=== PATIENT | female | born 1995 | race Caucasian/White ===

== ENCOUNTER 2019-12-31 20:46 | Inpatient (IN) | payer OTHER ==
[~2019-12-31] VITALS: Ht 175.3 cm; Wt 62.6 kg
[2019-12-31 20:47] VITALS: BP 128/83
[2019-12-31 21:27] LABS: ABSOLUTE NEUTROPHILS 2.3 thou/uL (1.4-8.2); BASOPHILS 0.3 % (0.0-2.0); HEMOGLOBIN 14.6 gm/dL (12.0-15.0)
[2019-12-31 21:29] LABS: HEMATOCRIT 41.7 % (37.0-47.0); LYMPHOCYTES 15.2 % (24.0-44.0); MCH 34.4 pg (26.0-34.0); MCHC 34.9 g/dL (28.0-37.0); MCV 98.6 fL (80.0-100.0); MONOCYTES 8.8 % (1.0-8.0); POLYS 75.7 % (36.0-66.0); RBC 4.23 mil/uL (4.20-5.00); RDW 15.9 % (10.5-14.5)
[2019-12-31 21:44] LABS: ALBUMIN 4.2 g/dL (3.4-5.0); ANION GAP 20 mmol/L (7-16); BUN 10 mg/dL (7-18); CALCIUM 9.1 mg/dL (8.5-10.1); CO2 22 mmol/L (21-32); CREATININE 0.8 mg/dL (0.6-1.0); GLUCOSE 92 mg/dL (74-106); LIPASE 375 U/L (73-393); SGOT 353 U/L (15-37); SGPT 133 U/L (30-65); SODIUM 133 mmol/L (136-145); TOTAL BILIRUBIN 2.4 mg/dL (<0.1-1.0); TOTAL PROTEIN 8.4 g/dL (6.4-8.2); TROPONIN-I <0.06 ng/mL (<0.06)
[2019-12-31 21:45] LABS: POTASSIUM 2.4 mmol/L (3.5-5.1)
[2019-12-31 21:46] LABS: CHLORIDE 91 mmol/L (98-107)
[2019-12-31 22:05] LABS: MACROCYTES SLIGHT; PLATELET ESTIMATE MARKEDLY DECREASED
[2019-12-31 22:09] LABS: PLATELET COUNT 24 thou/uL (150-400)
[2019-12-31 23:53] VITALS: BP 125/59
[2020-01-01] VITALS (33 sets, daily range): BP systolic 94–123; BP diastolic 46–79
--- NOTE | 2020-01-01 00:24 | NUR ---
ADMITTED 2350 to ICU room 247 for ETOH withdrawl (CIWA in ED =24), r/o Covid-19 (fever, no cough or SOA), nausea and vomitting x 3-4 days, difficulty urinating, and SVT (rhythm pt was in when EMS arrived at her home). Pt weak, oriented x3-4, monitor currently sinus tachycardia with rates 104-120; pt O2 sat 95% on room air. Primary nurse currently putting rodriguez cath as pt states she has been unable to void for several hours. Pt also states she has not had a BM in over a week.
[2020-01-01 01:43] LABS: URINE BILIRUBIN 2+ (Negative); URINE BLOOD 2+ (Negative); URINE CLARITY CLEAR; URINE COLOR YELLOW; URINE GLUCOSE-RANDOM* NEGATIVE (Negative); URINE KETONES TRACE (Negative); URINE LEUKOCYTES-REFLEX NEGATIVE (Negative); URINE NITRITE-REFLEX NEGATIVE (Negative); URINE PROTEIN (DIPSTICK) 2+ (Negative); URINE SPECIFIC GRAVITY >= 1.030 (1.005-1.035)
[2020-01-01 01:45] LABS: ICTOTEST (BILI CONFIRMATORY) Positive (Negative)
[2020-01-01 01:53] LABS: BACTERIA-REFLEX None Seen /HPF (None Seen); CRYSTALS None Seen /LPF (None Seen); HYALINE CASTS 0-3 Few /LPF (None Seen); MUCUS 4-6 Moderate strn/LPF (None Seen); SQUAMOUS 0-3 Few /LPF (0-3); URINE RBC 3-10 Few /HPF (0-2); URINE WBC-REFLEX None Seen /HPF (0-5)
--- NOTE | 2020-01-01 02:00 | NUR ---
PT RESTING QUIETLY. CALM AND COOPERATIVE. DENIES DISCOMFORT.
[2020-01-01 04:07] LABS: MAGNESIUM 1.7 mg/dL (1.8-2.4)
[2020-01-01 04:07] LABS: INR 1.2; PROTIME 12.3 Seconds (9.3-11.4)
[2020-01-01 04:08] LABS: POTASSIUM 2.5 mmol/L (3.5-5.1)
--- NOTE | 2020-01-01 06:00 | NUR ---
PT IS DROUSY BUT AROUSES EASILY. ORIENTED X 3 PT STATES TO NOT BE ABLE TO TASTE NOR SMELL. EYES ARE VERY REDDENED. REMAINS IN ISOLATION FOR POSSIBLE COVID 19 POSITIVE. SINUS RHYTHM LUNGS CLEAR O2 SAT 96 % ON ROOM AIR. K AND MG BEING REPLACED AT PRESENT. WILL CONT TO MONITOR.
--- NOTE | 2020-01-01 08:51 | NUR ---
Assumed care at 0700. PT appears alert and oriented in bed. PT declines bath and turn at this time. When asked if PT has any concerns or goals for today she stated, "no, none that I can think of." VSS. See reassessment for further details. PT denies any pain or nausea at this time. Moderate tremors noted with bilateral arms extended. CIWA score of 7 at this time. No PRN medications given. 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 The number for Jerzy Campo is [phone]. PT requested to add Jackson Pate [phone] to her contact list. Jackson Pate is step-dad. High fall risk precautions are in place. Call light is within reach. RN will continue to monitor.
[2020-01-01 09:27] LABS: ALBUMIN 2.8 g/dL (3.4-5.0); CALCIUM 7.6 mg/dL (8.5-10.1); CREATININE 0.5 mg/dL (0.6-1.0); TOTAL BILIRUBIN 2.7 mg/dL (<0.1-1.0)
[2020-01-01 09:29] LABS: POTASSIUM 3.8 mmol/L (3.5-5.1)
--- NOTE | 2020-01-01 11:47 | NUR ---
RN escorted PT to CT for an abdominal scan per GI. PT ambulated from bed to wheelchair with nurse ast. Fall precautions in place. Tremors were noted throughout PT's body during activity. PT reported mild dizziness and worsening headache with movement. PT appeared to tolerate exam and activity fair. PT back in bed denies significant pain just reports "full body aches." VSS. See reassessment for more details. High fall risk precautions in place. Call light is within reach. RN will continue to monitor.
--- NOTE | 2020-01-01 13:48 | NUR ---
chart review. caitie spoke with bedside nurse and transfer call into pt room. caitie visited with mustapha via phone call. intro to caitie, transition of care, outpt resource for alcohol abuse, and safe net packet. she is a & o x 3, pleasant and quiet. able to make her needs know. mustapha reported " sometimes stay with luz marina, other time stay with by jhonny booth, in house with my 2 kids ( 6 and 3 years old). jhonny is taking care of them know. 20 steps in the house. no dme. no longer drive. independent with adl's. no working, i stay at home. no rehab or hh in past. no support for alcohol."/mustapha. education on safe net packet, [facility], [facility], and [facility]. will cont following as needed for dc needs.
[2020-01-01 16:07] LABS: HAV IgM AB (ANTI-HAV IgM) Indeterminate (Negative); HEPATITIS B SURFACE AG Negative (Negative); HEPATITIS C VIRUS AB <0.1 (0.0-0.9)
--- NOTE | 2020-01-01 16:16 | NUR ---
RN paged Dr. Harris through GI answering service at 1600. Dr. Harris returned phone call at 1610. RN notified Dr. Harris of the PT's CT results and asked if the PT could have a diet. Provider verbalized understanding and ordered PT to have a clear liquid diet that may be advanced as tolerated. RN verbalized understanding. Will continue to monitor.
--- NOTE | 2020-01-01 17:56 | NUR ---
PT is progressing towards care plan goals. She has denied any nausea this shift. Urine output is adequate, a total of 850 mls for this shift. CIWA scores have remained at 7. No PRN medications given per protocol. PT's diet has been advanced to clear liquids. PT has tolerated water well however has not attempted jello or broth at this time. PT denies any complaints or concerns. High fall risk precautions are in place. Call light is within reach. RN will continue to monitor.
[2020-01-02] VITALS (13 sets, daily range): BP systolic 99–113; BP diastolic 64–82
[2020-01-02 05:45] LABS: WBC 2.6 thou/uL (4.0-11.0)
[2020-01-02 05:46] LABS: HEMATOCRIT 32.6 % (37.0-47.0); MCH 35.2 pg (26.0-34.0); MCV 100.7 fL (80.0-100.0); RBC 3.24 mil/uL (4.20-5.00); RDW 15.7 % (10.5-14.5)
[2020-01-02 05:56] LABS: HEMOGLOBIN 11.4 gm/dL (12.0-15.0)
[2020-01-02 06:17] LABS: ALBUMIN 2.8 g/dL (3.4-5.0); CALCIUM 7.7 mg/dL (8.5-10.1); CREATININE 0.5 mg/dL (0.6-1.0); POTASSIUM 3.2 mmol/L (3.5-5.1); TOTAL BILIRUBIN 3.1 mg/dL (<0.1-1.0); TOTAL PROTEIN 6.1 g/dL (6.4-8.2)
--- NOTE | 2020-01-02 11:16 | HC ---
[facility] [place] [address] CONSULTATION Name: EDMUNDO HOPPER Room #: 247-P [facility] IN ..#: [id number] Admission: 12/31/19 Attend Phys: Preston Crum MD Discharge: Date of : 89 Report #: [id number] THIS REPORT FOR: cc: [facility] - Clinic physician unknown [facility] - Clinic physician unknown Ryan Trujillo MD ~ CC: [facility] unknown Martin Tong DATE OF SERVICE: 01/01/2020 INFECTIOUS DISEASES CONSULTATION REASON FOR CONSULTATION: I was asked to evaluate concerning alcohol-induced hepatitis and possible COVID-19. HISTORY OF PRESENT ILLNESS: The patient is a 24-year-old admitted on 12/31/2019 with abdominal pain, nausea, vomiting. She is a drinker of whiskey. She has had symptoms for the past 3 days with nausea and vomiting. Abdominal pain has persisted. No diarrhea. She has been shaky, feels like she might be in withdrawal. On admission, she had low-grade fever. She has had no cough or sputum production. She has underlying hepatitis C. She reports not abiding by the rules of social distancing. REVIEW OF SYSTEMS: A 14-point review of system was negative other than what has been described above. ALLERGIES: None known. MEDICATIONS: None prior to her admission, now on ceftriaxone, azithromycin. PAST MEDICAL HISTORY: Alcohol abuse, hepatitis C, pancreatitis, low back injury, tobacco use. FAMILY HISTORY: No report of tuberculosis. SOCIAL HISTORY: Smoke cigarettes, heavy alcohol use, marijuana use. PHYSICAL EXAMINATION: VITAL SIGNS: She is afebrile and hemodynamically stable. Due to COVID-19 and PPE conservation program, the patient was witnessed at her window entry. Discussed with nursing staff. Examination per attending today. There is report of soft abdomen with no hepatosplenomegaly. CHEST: Clear lung del cid. HEART: Regular, without murmur. [facility] [address] [place] [address] CONSULTATION Name: EDMUNDO HOPPER Room #: 247-P [facility] IN [facility]#: [id number] Admission: 12/31/19 Attend Phys: Preston Crum MD Discharge: Date of : 89 Report #: [id number] LABORATORY STUDIES: Reviewed. MICROBIOLOGY: Reviewed. Chest x-ray and CT scan reviewed. IMPRESSION: A 24-year-old with alcoholic hepatitis. This is in the setting of hepatitis C infection, now responding to IV fluid resuscitation. Concern for possible viral gastroenteritis versus peptic ulcer disease. Pancreatic enzymes are normal. Initial lactate was elevated, now back down to normal. Thrombocytopenia, concerning for portal hypertension, although there was no hepatosplenomegaly evident on CT scanning. She does have evidence of hepatic steatosis. Potential exposure to SARS coronavirus 2. RECOMMENDATIONS: We will continue with current antibiotic program, pending culture results. Follow serial laboratory studies including CBC and liver function tests. COVID testing has been sent. We will keep him in isolation, pending studies. <ELECTRONICALLY SIGNED> By: Ryan Trujillo MD 01/02/20 1116 1553 1731 Ryan Trujillo MD /nt
--- NOTE | 2020-01-02 19:41 | NUR ---
ASSUMED CARE AT 0700, ASSESSMENT AND VITAL SIGNS COMPLETED PER ICU PROTOCOL. DR. FREEDMAN ROUNDED THIS AM, NEW ORDERS RECEIVED AND EXECUTED. JOSE CARLOS MOREJON, ROUNDED, NEW ORDERS RECEIVED AND EXECUTED. PT STATUS CHANGED FROM ICU TO M/S TELE, PT PROGRESSING TOWARDS POC.
--- NOTE | 2020-01-03 03:49 | NUR ---
ASSUMED PT CARE AROUND 1900. PT RESTING IN BED WATCHING TELEVISION. PT AOX4 WITH VSS AND NO C/O PAIN, N/V/D, OR SOA. PT DOES HOWEVER HAVE TREMORS AND VISUAL HALLUCINATIONS THRU SHIFT. [facility] PROTOCOL FOLLOWED AND MEDICATED ACCORDINGLY. PT HAD MILD FEVER AT BEGINNING OF SHIFT GIVEN TYLENOL AND TEMP RETURNED STABLE. PT ALBERTO REMOVED PER PROTOCOL. PT RESTED THRU NIGHT WITH MINIMAL INTERRUPTIONS. WILL CONTINUE TO MONITOR FOR ANY CHANGE IN CONDITION.
[2020-01-03 04:00] VITALS: BP 97/70
[2020-01-03 08:06] VITALS: BP 105/75
[2020-01-03 09:38] LABS: MCH 35.1 pg (26.0-34.0); WBC 3.1 thou/uL (4.0-11.0)
[2020-01-03 09:40] LABS: HEMATOCRIT 35.3 % (37.0-47.0); HEMOGLOBIN 12.4 gm/dL (12.0-15.0); MCV 100.3 fL (80.0-100.0); RBC 3.52 mil/uL (4.20-5.00); RDW 16.2 % (10.5-14.5)
--- NOTE | 2020-01-03 13:18 | NUR ---
Pt has transfer orders to med surg unit from ICU today. CILADI better. Pt has been given ethol resources. [employer] referral in progress for pt pay status. Contact numbers for boyfriend and step dad updated. Pt up with supervision. Possible dc home 1-2 days. Will follow along should the pt need scripts vouched at dc.
--- NOTE | 2020-01-03 15:44 | NUR ---
ASSESSMENTS DOCUMENTED. PT HAS MED/SURG TRANSFER ORDERS. SLEEPING MOST OF DAY. ADEQUATE APPETITE AND URINE OUTPUT. PT CONTINUES TO BE CONFUSED ABOUT WHERE WE CURRENTLY ARE. NEEDS STANDBY ASSIST WHEN OOB DUE TO UNSTEADY GAIT. PROGRESSING TOWARDS PLAN OF CARE, EVIDANCE BY DECREASING CIWA SCORES. WILL CONTINUE TO MONITOR.
[2020-01-04 00:01] VITALS: BP 125/83
[2020-01-04 03:52] VITALS: BP 115/76
--- NOTE | 2020-01-04 04:17 | NUR ---
RECIEVED TRANSFER FROM ICU AT 2345. ATIVAN GIVEN PER CWAW SCORE. RESTING QUIETLY WITHOUT PRESENT COMPLAINTS. CWAW 4/NO ATIVAN GIVEN. UP TO BATHROOM WITH STANDBY ASSIST. PROGRESSING SLOWLY TOWARDS DISCHARGE GOALS AND PLAN OF CARE FOR NOC. CONTINUE TO ASSES CLOSELY.
[2020-01-04 05:33] LABS: ALBUMIN 3.2 g/dL (3.4-5.0); CALCIUM 8.9 mg/dL (8.5-10.1); CREATININE 0.5 mg/dL (0.6-1.0); MAGNESIUM 1.4 mg/dL (1.8-2.4); POTASSIUM 3.5 mmol/L (3.5-5.1); TOTAL BILIRUBIN 3.3 mg/dL (<0.1-1.0); TOTAL PROTEIN 7.1 g/dL (6.4-8.2)
[2020-01-04 05:41] LABS: WBC 3.7 thou/uL (4.0-11.0)
[2020-01-04 05:42] LABS: HEMATOCRIT 35.4 % (37.0-47.0); HEMOGLOBIN 12.4 gm/dL (12.0-15.0); MCH 35.6 pg (26.0-34.0); MCV 101.6 fL (80.0-100.0); RBC 3.49 mil/uL (4.20-5.00); RDW 16.5 % (10.5-14.5)
[2020-01-04 07:20] VITALS: BP 110/75
[2020-01-04] MEDS ORDERED: CHLORDIAZEPOXIDE5 M2 PO (09:17)
[2020-01-04] MEDS ORDERED: FOLIC ACID1 MG PO (09:17)
[2020-01-04] MEDS ORDERED: VITAMIN B-1100 M2 PO (09:18)
[2020-01-04 11:32] VITALS: BP 115/69
--- NOTE | 2020-01-04 11:45 | NUR ---
RECEIVED PT'S CARE AROUND 0720; PT. ON BED; ALERT; AWAKE; DURING AM ASSESMENT C/O HEADACHE; PRN PAIN MEDICATION GIVEN WITH AM MEDICATION; PER HOSPITALIST OK FOR PT. TO GO HOME; PRESCRIPTION GIVEN; WILL EDUCATED ABOUT WHERE TO FOLLOW UP & MONITOR LIVER TEST; EDUCATED ABOUT FALL PRECAUTIONS; ST. UNDERSTANDING; WORKING ON D/C ORDERS; TOOK A SHOWER; SA ON THE MONITOR; ASSESSMENT CHARGED; FOLLOWED POC;
[2020-01-04 11:57] VITALS: BP 115/69
--- NOTE | 2020-01-04 12:20 | NUR ---
Pt dcing home today. Recommended for f/u at [facility] right away for estb pcp, labs, and medication assistance as well as mental health noted in the pt's dc instructions. Shakila tx and support resources noted in the pt's dc instructions as well. Jabier will f/u with her about her medicaid application.
--- NOTE | 2020-01-05 12:23 | EKG ---
[facility] [address] [address] [place] [address] ELECTROCARDIOGRAM REPORT Name: EDMUNDO HOPPER Room #: 202-P [facility] IN M.R.#: [id number] Admission: 12/31/19 Attend Phys: Preston Crum MD Discharge: 01/04/20 Date of : [birth year] Report #: [id number] THIS REPORT FOR: cc: [facility] - Clinic physician unknown [facility] - Clinic physician unknown Dinesh Cottrell MD [facility] ~ THIS REPORT FOR: //name// [facility] ED Test Date: 2019-12-31 Test Time: 21:03:17 Pat Name: EDMUNDO HOPPER Department: Room: [facility] Gender: F Restaurant Hospitality Manager: MARLENE : 1995 Requested By: Clary Morse Order Number: [id number] MD: Dinesh Cottrell Measurements Intervals [place] Rate: 112 P: 53 CA: 76 QRS: 79 QRSD: 90 T: -45 QT: 416 QTc: 568 Interpretive Statements Sinus tachycardia Abnormal T, consider ischemia, diffuse leads Prolonged QT interval No previous ECG available for comparison Electronically Signed On 01-01-2020 9:37:49 CDT by Dinesh Cottrell [email or web address] <ELECTRONICALLY SIGNED> By: Dinesh Cottrell MD, FACC 01/01/20 0937 02 02 Dinesh Cottrell MD, [facility] /EPI
== END 2020-01-04 13:18 | disposition home or self-care (01) | DRG 871 ==
LOC: ER 20:46 → ICU 22:51 → EROBS 22:51 → ICU 23:44 → 2N 01-03 23:48
PROVIDERS: Emergency Medicine Emergency Medical Services; Hospitalist; Nurse Practitioner; Nurse Practitioner Family; ADMIT Hospitalist
DX: A41.9 Sepsis, unspecified organism (principal); R65.21 Severe sepsis with septic shock; I47.1 Supraventricular tachycardia; R04.2 Hemoptysis; K76.6 Portal hypertension; B15.9 Hepatitis A without hepatic coma; D72.819 Decreased white blood cell count, unspecified; D72.810 Lymphocytopenia; B19.20 Unspecified viral hepatitis C without hepatic coma; D69.6 Thrombocytopenia, unspecified; Z20.828 Contact with and (suspected) exposure to other viral communicable diseases; F17.210 Nicotine dependence, cigarettes, uncomplicated; F10.20 Alcohol dependence, uncomplicated; R74.0 Nonspecific elevation of levels of transaminase and lactic acid dehydrogenase [LDH]; F12.90 Cannabis use, unspecified, uncomplicated; E87.6 Hypokalemia; K70.10 Alcoholic hepatitis without ascites; K59.00 Constipation, unspecified; Z79.899 Other long term (current) drug therapy
CPT/HCPCS: 10078; 10081